=== PATIENT | female | born 1995 | race Caucasian/White ===

== ENCOUNTER 2019-01-13 17:20 | Observation (INO) | payer OTHER ==
[~2019-01-13] VITALS: Ht 154.9 cm; Wt 66.7 kg
== END 2019-01-13 19:05 | disposition home or self-care (01) ==
LOC: SPU 17:20
PROVIDERS: ADMIT Obstetrics & Gynecology; ATTEND Obstetrics & Gynecology
DX: O42.913 Preterm premature rupture of membranes, unspecified as to length of time between rupture and onset of labor, third trimester (principal); Z3A.36 36 weeks gestation of pregnancy
CPT/HCPCS: 81002-TC; G0378